=== PATIENT | female | born 1955 | race Caucasian/White ===

== ENCOUNTER 2022-12-26 14:08 | Outpatient (CLI) | payer MEDICARE, OTHER, SELFPAY ==
--- NOTE | 2022-12-26 14:30 | CRLHL7_ITS ---
For Patients: As a result of the Century Cures Act, medical imaging exams and procedure reports are released immediately into your electronic medical record. You may view this report before your referring provider. If you have questions, please contact your health care provider. DXA BONE MINERAL DENSITY STUDY Current height (in): 67.0. Weight (lb): 130.0. Menopause age: 58. Ethnicity: White. Reason for exam: Osteoporosis. 1. Have you had a previous hip or vertebral fracture? No. 2. Have you had any fractures during your adult life which did not result from significant trauma (e.g., auto accident)? No. 3. Did either of your parents have a hip fracture? No. 4. Do you smoke? No. 5. Have you ever taken Glucocorticoids? No. 6. Do you have rheumatoid arthritis? No. 7. Do you have secondary osteoporosis? No. 8. Do you drink 3 or more alcoholic drinks per day? No. 9. Are you being treated for osteoporosis? Yes. 10. Have you ever taken any of the following medications: Actonel, Evista, Fosamax, Miacalcin, Reclast, Boniva, Forteo, HRT (i.e. estrogen/hormone therapy), Protelos, Prolia, Vitamin D, Calcium, other ??? please specify. ANSWER: Fosamax, vitamin D, calcium. 11. Do you have any of the following medical conditions: Anorexia or bulimia, asthma or emphysema, end stage renal disease, hyperparathyroidism, any seizure disorders, cancer, inflammatory bowel diseases, hysterectomy, other ??? please specify. ANSWER: No. 12. What was your maximum height (inches)? 68. 13. Do you perform weight bearing exercise regularly? Yes. 14. Do you regularly consume dairy products? Yes. 15. Do you drink caffeinated beverages? Yes. 16. At what age did your period start? 15. 17. Are you premenopausal? No. 18. How many full-term pregnancies have you had? 3. 19. Have you ever missed your period for more than 6 months in a row (not including or menopause)? Yes. TECHNIQUE: Bone mineral density study was performed using the [employer]. FINDINGS: The results of the study expressed as bone mineral density (BMD) are as follows: Lumbar spine L1 to L4: BMD: 0.716 g/cm2. T-score: -3.1. Z-score: -1.0. Neck Left: BMD: 0.504 g/cm2. T-score: -3.1. Z-score: -1.4. Right: BMD: 0.578 g/cm2. T-score: -2.4. Z-score: -0.7. Total Left: BMD: 0.653 g/cm2. T-score: -2.4. Z-score: -0.9. Right: BMD: 0.725 g/cm2. T-score: -1.8. Z-score: -0.3. IMPRESSION: Osteoporosis. *Comparison exams done prior to 12/2019 were performed on different unit, [facility]. COMPARISON: Compared with scan of 11/15/2021, the bone mineral density has increased by 3.1 percent at the spine and increased by 1.5 percent at the hip. Johnie Warner M.D. Diagnostic Radiologist [email or web address] Transcribed: 5:02 pm DW/Dictated by: Johnie Warner MD @ 12/26/2022 2:57:00 PM (Electronically Signed)
== END 2022-12-26 14:09 | disposition home or self-care (01) ==
LOC: RAD 14:09
PROVIDERS: PCP Internal Medicine; Visit Provider Internal Medicine
DX: M81.0 Age-related osteoporosis without current pathological fracture (principal)
CPT/HCPCS: 77080

== ENCOUNTER 2024-03-25 10:06 | Outpatient (CLI) | payer MEDICARE, SELFPAY ==
--- OUTSIDE RECORDS SUMMARY | 2024-03-27 16:19 | XMS_ITS | Clinical Summary ---
Author Organization [facility] Address [place], [place] [address] Care Team Providers Care Call Or Contact Centre Operator Name Role Phone Sleina Wang DO Primary Care Provider Allergies Active Allergy Reactions Criticality Noted Date Comments Cephalexin Jaundice 10/09/2017 Medications Medication Sig Dispensed Refills Start Date End Date Status alendronate (FOSAMAX) 70 mg tablet Take 1 tablet by mouth once a week in the morning. 07/05/2017 Active multivitamin (MVI) tablet Take 1 tablet by mouth once daily. 0 10/09/2017 Active calcium carbonate-cholecalcife rol, 600mg-200 units, (CALCIUM 600 + D,3,) tablet Take 1 tablet by mouth 2 times daily with meals. 0 10/09/2017 Active Active Problems Problem Noted Date Diagnosed Date Osteopenia 10/09/2017 Immunizations Name Administration Dates Next Due COVID-19 vaccine ([employer] 30mcg/0.3mL) P F, MDV 10/23/2020,10/02/2020 Influenza, IIV3 (Age 6-35 mos) 07/02/2013 Tdap 03/28/2011 Zoster (Zostavax-ZVL, live) 07/02/2013 Family History Medical History Relation Name Comments Diabetes Father Pancreatitis Father agent orange hx Relation Name Status Comments Father Social History Tobacco Use Types Packs/Day Years Used Date Smoking Tobacco: Never Smokeless Tobacco: Never Tobacco Cessation:Counseling Given: Yes Alcohol Use Standard Drinks/Week Comments Yes 7 (1 standard drink = 0.6 oz pur e alcohol) PHQ-2 Answer Date Recorded PHQ-2 Score 0 09/30/2018 Sex and Gender Information Value Date Recorded Sex Assigned at Female 09/30/2020 10:34 AM CONE OPERATOR Gender Identity Female 09/30/2020 10:34 AM CONE OPERATOR Sexual Orientation Straight 09/30/2020 10 :34 AM CONE OPERATOR Obstetrics History Para Term AB IAB SAB Ectopic Multiple Livin g Live Births 4 1 1 3 Date Outcome GA Total Labor Labor/2nd/3rd Weight Sex Type Anes PTL Jesi A1 A5 Name Clin SAB Last Filed Vital Signs Vital Sign Reading Time Taken Comments Blood Pressure 130/82 07/14/2019 1:32 PM CONE OPERATOR tow er Pulse 67 07/14/2019 1:32 PM CONE OPERATOR Temperature 37.1 ??C (98.7 ??F) 10/09/2017 10:14 AM C DT Respiratory Rate - - Oxygen Saturation 97% 07/14/2019 1:32 PM CONE OPERATOR Inhaled Oxygen Concentration - - Weight 59.9 kg (132 lb) 07/14/2019 1:32 PM CONE OPERATOR Height 171 cm (5' 7.32) 10/09/2017 10:14 AM CDT Body Mass Index 20.48 10/09/2017 10:14 AM CDT Plan of Treatment Health Maintenance Due Date Last Done Comments Hepatitis C screening for age 18-79 01/08/1972 Colonoscopy through age 75 1999 Lipids for age 45-75 1999 Mammogram for age 45-75 1999 Zoster (shingles) series for age 50+ (2 of 3) 08/27/2013 07/02/2013 BMI (ht and wt on same day) for age 18+ 10/09/2018 0 10/09/2017 Depression screening for age 12+ 10/09/2018 10/10/19 18 DEXA/DXA scan for age 65+ 2019 Pneumococcal series for age 65+ (1 of 1 - PCV) 2019 Tetanus booster 03/28/2021 03/28/2011 COVID-19 vaccine series (3 - 2022- season) 2023 10/23/2020, 10/02/2020 Influenza for age 65+ 03/29/2024 Tdap Completed 03/28/2011 Care Teams Call Or Contact Centre Operator Relationship Specialty Start Date End Date Selina [place] [address] [place] [address] PCP - General Family Practice 08/14/17
== END 2024-03-25 10:07 | disposition home or self-care (01) ==
LOC: NFLDREF 03-27 16:17
PROVIDERS: PCP Internal Medicine; Referring Provider Internal Medicine; Visit Provider Internal Medicine
DX: M81.0 Age-related osteoporosis without current pathological fracture (principal)
CPT/HCPCS: 82306

== ENCOUNTER 2025-04-23 12:50 | Outpatient (CLI) | payer MEDICARE, BC, SELFPAY | END 2025-04-23 12:51 | disposition home or self-care (01) | LOC: RAD 12:51 | PROVIDERS: PCP Internal Medicine; Visit Provider Internal Medicine | DX: I38 Endocarditis, valve unspecified (principal) | CPT/HCPCS: 93306 ==

== ENCOUNTER 2025-06-01 10:30 | Outpatient (RCR) | payer MEDICARE, BC, SELFPAY | END 2025-07-08 15:35 | disposition home or self-care (01) | PROVIDERS: PCP Internal Medicine; Visit Provider Internal Medicine | DX: M54.2 Cervicalgia (principal); Z51.89 Encounter for other specified aftercare | CPT/HCPCS: 97110; 97112; 97140; 97161 ==